=== PATIENT | female | born 1950 | race Two or more races ===

== ENCOUNTER → 2017-01-18 | Outpatient (CLI) | payer MEDICARE ==
--- NOTE | 2017-01-18 14:55 | RADRPT ---
PROCEDURE: XR pelvis and XR left hip. CLINICAL INDICATION: PAIN TECHNIQUE: AP pelvis, AP and frog lateral views of the left hip were performed. COMPARISON: None. FINDINGS: There is normal mineralization. There is normal alignment. No acute fracture or osseous lesion is identified. There are mild degenerative changes of bilateral hip joints including joint space narrowing and smal l osteophytes. The soft tissues are unremarkable. RPTAT: AA IMPRESSION: Mild degenerative changes of bilateral hip joints. Ian Mendez Physician Date Time Electronically viewed and signed by Ian Mendez Physician on 01/18/2017 14:55 /
--- NOTE | 2017-01-18 14:56 | RADRPT ---
PROCEDURE: LEFT KNEE X-RAY CLINICAL INDICATION: PAIN TECHNIQUE: AP, lateral, oblique, and sunrise views of the knee were obtained. COMPARISON: None FINDINGS: No acute fracture or dislocation is seen. There is normal mineralization. There is mild narrowing of the medial compartment. Mild spurring is noted at the superior pole of th e patella. There is no joint effusion. There is no significant soft tissue swelling. IMPRESSION: Mild degenerative changes of the left knee joint. RPTAT: EE Physician Ronnell Date Time Electronically viewed and signed by Ian Mendez Physician on 01/18/2017 14:56 /
--- NOTE | 2017-01-18 15:43 | CONS ---
Date/Time of Note Date/Time of Note DATE: 01/18/17 TIME: 15:30 Assessment/Plan Assessment/Plan Additional Assessment/Plan The patient was advised through her daughter as the science interpreter that she does not have any serious issue with the lower extremity. She does have an effusion in the left kneeAnd this would explain to a large extent her vague symptoms of pain in the left legShe has been advised to have physical therapy treatmentsTo take Celebrex 200 mg twice daily after meals given a prescription for 30 tabletsTo have the physical therapy treatments done at the health care facilityTo do exercises at home and her daughter has been instructed on obtaining ankle weights for her to strengthen the quadriceps muscleTo return again within 2-4 weeks if her symptoms persist Consultation Date/Type/Reason Admit Date/Time Date of Consultation: Jan 18, 2017 Hx of Present Illness History referred by Dr. Lou from some clinic seen with her daughter Tatum Howard Chief Complaint pain in the left leg involving the left knee and possibly left hip With her daughter acting as the science interpreter she indicated that she is noted swelling in the left knee and left hip since September 2016 she also has some kind of vague pain involving the whole of the left leg from the hip to the toesHe is seen doctors for this but cannot recall the doctors what treatment she was givenIs only been given pain medicationsAnd Naprosyn and ibuprofenOn current complaints today she has pain in the left lower extremity from the knee down very vague. 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 Swelling is noted in the knee and there is tenderness to light skin pressure over the medial and lateral aspect of the knee. There was no instability of the medial or lateral collateral ligaments, or anterior or posterior cruciate ligaments. The Clifford test was negative/positive. The Apley grinding test was negative/positive. The popliteal fossa examination revealed no abnormality. The Russell test was negative/positive and the pivot shift test was negative/positive. The patellae moved well in flexion and extension. There was no evidence of any subluxation or dislocation of the patellae. There was no tenderness over the articular surface of the patellae. Knee motion extension right 180Left 180 Flexion right 140 left 120 EXAMINATION OF THE ANKLES- Walking was without disturbance of stance or gait. No tenderness, swelling or deformity was noted. PER AMA GUIDES: ANKLE MOTION: RIGHT LEFT NORMAL Plantar Flexion: [Right plantar flexion normal left plantarflexion normal right dorsiflexion normal left dorsiflexion normal right knee vision normal left eversion normal right inversion normal right normal left] [] 25 Dorsiflexion: [] [] 15 Eversion: [] [] 15 Inversion: [] [] 25 ELFEGO ANSARI Jan 18, 2017 15:41
== END | disposition home or self-care (01) ==
LOC: HKI 14:38
DX: M25.562 Pain in left knee (principal); M25.552 Pain in left hip
CPT/HCPCS: 73502; 73564; G0463